=== PATIENT | female | born 1950 | race Caucasian/White ===

== ENCOUNTER → 2019-02-26 | Outpatient (CLI) | payer MEDICARE, BC ==
--- NOTE | 2019-02-26 13:49 | RADRPT ---
Echocardiogram Report Patient Name: AMANDA ONEALPatient ID: [id number] : 1950 (69y 1m)Study Date: 02/26/2019 9:51:10 AM Gender: FAccession #: [id number] Tech: LE Location: [facility] Ref.Physician: VIVIENNE CASTILLO Height(Cm): BSA: Weight(Kg): Quality: GoodOrder Physician: VIVIENNE CASTILLO Account #: Procedures: Echocardiographic Report: Transthoracic echocardiogram with complete 2D, M-Mode, and doppler examination. Indications: Limited Scleroderma. Measurements: 2D/M Mode Doppler Measurement Value Normal Range Measurement Value Normal Range LVIDd 2D 4.0 [ 3.8 - 5.2 ] cm AV Mean Jef 1.1 [ 70.0 - 90.0 ] cm/sec LVIDs 2D 2.8 [ 2.2 - 3.5 ] cm AV Mean PG 6.0 [ 2.0 - 4.0 ] mmHg LVPWd 2D 1.0 [ 0.6 - 0.9 ] cm AV Peak Jef 1.4 [ 100.0 - 170.0 ] cm/sec IVSd 2D 1.0 [ 0.6 - 0.9 ] cm AV Peak PG 7.0 [ 2.0 - 9.0 ] mmHg EDV 2D 69.6 [ 46.0 - 106.0 ] ml AV VTI 31.1 cm ESV 2D 28.8 [ 14.0 - 42.0 ] ml LVOT Peak Jef 1.0 [ 70.0 - 110.0 ] cm/sec EF 2D 58.6 [ 54.0 - 74.0 ] percent LVOT Peak PG 4.0 [ 2.0 - 6.0 ] mmHg LVOT Diam 1.9 [ 2.1 - 2.5 ] cm MV E Peak Jef 0.7 [ 60.0 - 130.0 ] cm/sec MV A Peak Jef 0.6 [ 100.0 - 120.0 ] cm/sec MV E/A 1.2 [ 0.8 - 1.5 ] ratio MV Decel Time 218 [ 104 - 258 ] msec Lat E` Jef 0.1 [ 10.0 - 15.0 ] cm/sec Lateral E/E` 8.6 [ 1.0 - 2.0 ] ratio Med E` Jef 0.1 cm/sec MV E/A 1.2 [ 0.8 - 1.5 ] ratio TR Peak Jef 2.6 [ 100.0 - 280.0 ] cm/sec TR Peak PG 27.0 mmHg PV Peak Jef 0.7 [ 40.0 - 80.0 ] cm/sec PV Peak PG 2.0 mmHg Findings: Left Ventricle: Normal left ventricular systolic function. Normal left ventricular cavity size. Normal left ventricular wall thickness. Ejection fraction is visually estimated at 60 %. Tissue Doppler/Mitral Doppler indices are consistent with pseudonormalization with mildly elevated left atrial pressure (Stage II diastolic dysfunction). Right Ventricle: Normal right ventricular size. Normal right ventricular systolic function. Left Atrium: The left atrium is normal in size. Right Atrium: The right atrium is normal in size. Atrial Septum: Normal atrial septum. Mitral Valve: Normal appearance of the mitral valve. Mild mitral valve regurgitation. Aortic Valve: Normal appearance of the aortic valve. No significant aortic stenosis or insufficiency. Tricuspid Valve: Normal appearance of the tricuspid valve. Right ventricular systolic pressure is consistent with mild pulmonary hypertension. Estimated peak PA systolic pressure 30 mmHg. There is mild tricuspid regurgitation. Pulmonic Valve: Pulmonic valve not well visualized. Pericardium: Normal pericardium with no significant pericardial effusion. Aorta: Normal aortic root. IVC: Normal size and normal respiratory collapse consistent with normal right atrial pressure. Conclusions: Normal left ventricular systolic function. Normal left ventricular cavity size. Normal left ventricular wall thickness. Ejection fraction is visually estimated at 60 %. Tissue Doppler/Mitral Doppler indices are consistent with pseudonormalization with mildly elevated left atrial pressure (Stage II diastolic dysfunction). Normal appearance of the mitral valve. Mild mitral valve regurgitation. n. Normal appearance of the tricuspid valve. Right ventricular systolic pressure is consistent with mild pulmonary hypertension. Estimated peak PA systolic pressure 30 mmHg. There is mild tricuspid regurgitation. Electronically Signed By: Sundeep Britton 2019-02-26 13:49:03 PDT
== END | disposition home or self-care (01) ==
LOC: EKG 09:15
PROVIDERS: ATTEND Specialist
DX: M34.9 Systemic sclerosis, unspecified (principal)
CPT/HCPCS: 93306; 94010; 94726; 94729